=== PATIENT | male | born 1975 | race Hispanic/Latino ===

== ENCOUNTER 2018-04-24 11:27 | Day surgery (SDC) | payer OTHER ==
[2018-03-01 10:58] VITALS: BMI 34.2
[2018-04-24] MEDS ORDERED: Propofol 1,000 MG/100 ML VIAL IV ONE (12:20)
[2018-04-24] MEDS ORDERED: Midazolam HCl 2 mg/2 ml Vial ONE (13:00)
[2018-04-24] MEDS ORDERED: Labetalol HCl 100 MG/20 ML VIAL ONE ×2 (13:24→14:37)
--- NOTE | 2018-04-24 15:40 | MRI ---
MRI OF LUMBAR SPINE PERFORMED WITHOUT CONTRAST ENHANCEMENT: 04/24/18 HISTORY: Back pain with radiculopathy. The vertebral bodies are normal in height. There is some disc desiccation changes at the L3-4 and L4- 5 levels. There is no significant periaortic adenopathy. The visualized portions of the kidneys shows a small T2 hyperintense lesion involving the right kidneys statistically most likely a small cyst. T12-L1: Unremarkable. L1-2: Unremarkable. L2-3: Unremarkable. L3-4: There are degenerative facet changes at this level without significant canal or foraminal steno sis. L4-5: Mild degenerative facet changes at this level. There is some borderline canal narrowing. Small left lateral annular disc tear without any significant foraminal narrowing. L5-S1: Unremarkable. IMPRESSION: Small left lateral annular disc tear at L4-5. There are degenerative facet changes and some borderlin e canal narrowing at this level. POS: [facility]
[2018-04-24] MEDS ORDERED: hydrALAZINE 20 MG/ML VIAL ONE ×2 (15:49→16:18)
== END 2018-04-24 17:09 | disposition home or self-care (01) ==
LOC: SDC/OP 11:27
PROVIDERS: ATTEND Family Medicine
DX: M51.16 Intervertebral disc disorders with radiculopathy, lumbar region (principal); M51.17 Intervertebral disc disorders with radiculopathy, lumbosacral region; Z79.899 Other long term (current) drug therapy
CPT/HCPCS: 72148; 96374; 96375; J0360; J2250; J2704